=== PATIENT | female | born 1965 | race Caucasian/White ===

== ENCOUNTER 2023-10-01 04:33 | Emergency (ER) | payer BC, SELFPAY ==
--- NOTE | ~2023-10-01 | CT_ITS ---
EXAMINATION: CT ABDOMEN AND PELVIS WITHOUT CONTRAST CLINICAL INFORMATION: Flank pain. COMPARISON: None available. TECHNIQUE: Multidetector volumetric imaging was performed from the superior aspect of the liver through the pubic symphysis. Sagittal and coronal reformatted images were obtained on the technologist's workstation. This CT examination was performed using dose optimization techniques as appropriate, variously including the following: *Automated exposure control *Adjustment of mA and/or kV according to patient size (this includes techniques or standardized protocols for targeted exams where dose is matched to indication/reason for exam; i.e. extremities or head) *Use of iterative reconstruction technique DLP: 760 mGy-cm FINDINGS: LUNG BASES: The visualized lung bases are unremarkable. LIVER, GALLBLADDER, AND BILIARY TREE: The liver is normal in size, shape, and attenuation. No focal hepatic lesion or biliary ductal dilatation is present. The gallbladder is unremarkable with no evidence of radiopaque gallstones, gallbladder wall thickening, or obvious pericholecystic inflammatory changes. PANCREAS: Unremarkable. SPLEEN: Unremarkable. ADRENAL GLANDS: Unremarkable. KIDNEYS AND URETERS: The kidneys are normal in size, shape, and attenuation. There is mild to moderate right hydronephrosis and hydroureter extending into the pelvis to the level of a 3 mm calculus right ureterovesicular junction. BLADDER: Unremarkable. GASTROINTESTINAL TRACT: The small and large bowel are unremarkable. The appendix is unremarkable. ABDOMINAL WALL: No significant hernia is appreciated. LYMPH NODES: Normal. VASCULAR: Unremarkable. PELVIC VISCERA: Unremarkable. OSSEOUS STRUCTURES: Unremarkable. CT/CT abdomen pelvis wo IV con IMPRESSION: Mild to moderate right hydronephrosis and hydroureter extending into the pelvis to the level of a 3 mm calculus at the right ureterovesicular junction. Fleischner guidelines were followed.
[2023-10-01 04:48] VITALS: BP 186/88; PULSE 77; RESP 20; TEMP 36.5; O2SAT 100; BMI 37.9
--- NOTE | 2023-10-01 05:15 | ED_ITS ---
HPI - Abdominal Pain General Chief Complaint: Abdominal Pain Stated Complaint: lower right abdominal pain Time Seen by Provider: 10/01/23 05:05 Source: patient Mode of arrival: ambulatory Limitations: no limitations History of Present Illness ED Provider: samia HPI narrative: Patient woke up at midnight with pain in right lower abdomen with history of constipation pain is sharp in character comes and goes nauseated vomited once no history of similar pain in the past no history of ovarian cyst no history of kidney stone no fever no chills no urinary complaints no hematuria Related Data Previous Rx's ?Medication ?Instructions ?Recorded oxycodone 5 mg tablet 5 mg PO Q6H PRN pain #20 tabs 10/01/23 tamsulosin 0.4 mg capsule (Flomax) 0.4 mg PO BEDTIME #7 caps 10/01/23 Allergies Allergy/AdvReac Type Severity Reaction Status Date / Time No Known Allergies Allergy Verified 10/01/23 04:52 Review of Systems Review of Systems Yes all other systems are reviewed and are negative [facility] Social History Social History Smoked in Last 30 Days: No Use of substances other than those prescribed or required for medical reasons: No Advance Directives: No Advance Directives Information Provided: Yes Do you have a plan to hurt others: No Plan Physical Exam ED Vital Signs: Vital Signs - 24 hr 10/01/23 04:48 Temperature 97.7 F Pulse Rate 77 Respiratory Rate 20 Blood Pressure 186/88 H Pulse Oximetry 100 Oxygen Delivery Method Room Air BMI result Body Mass Index 37.9 Appearance: Alert. Oriented X3. Moderate distress. Eyes no pallor or icterus ENT: Pharynx normal. Oral Mucosa moist Neck: Normal inspection. Neck supple. CVS: Normal heart rate and rhythm. Pulses normal. Respiratory: No respiratory distress. Equal air entry bilateral, no wheezing/rales/rhonchi Abdomen: Soft and nontender no rebound tenderness/ guarding Bowel sounds are present, no mass palpable, mild right CVA tenderness Skin: Skin warm and dry. Normal skin color. Normal skin turgor. Extremities: No lower extremity edema. No calf tenderness Neuro: Oriented X 3. No motor deficit. Medical Decision Making Medical Decision Making [facility] Narrative: Patient with small right UV junction stone with no prior history of kidney stones felt better after pain medication and IV hydration will discharge patient home advised to follow with urologist Differential Diagnosis Differential Diagnoses: The differential diagnosis associated with the presentation includes Kidney stone/appendicitis/ovarian cyst/diverticulitis/constipation/UTI Lab Data MDM Lab Attestation statement: I reviewed the patient's lab results. 10/01/23 05:18 10/01/23 05:18 Labs: Lab Results 10/01/23 Range/Units 05:18 WBC 10.1 (4.8-10.8) X10*3/uL RBC 4.80 (4.20-5.50) X10*6/uL Hgb 15.0 (12.0-16.0) g/dl Hct 42.9 (37.0-47.0) % MCV 89.4 (80.0-98.0) fL MCH 31.3 (27.0-33.0) pg MCHC 35.0 (31.0-35.0) g/dl RDW 13.1 (11.0-16.0) % Plt Count 286 (160-400) X10*3/uL MPV 10.1 (9.4-12.3) fL Immature Gran % (Auto) 0.5 H (0.0-0.4) % Neut % (Auto) 79.7 H (45-73) % Lymph % (Auto) 14.9 L (20-40) % Bracken % (Auto) 4.4 (2-11) % Eos % (Auto) 0.3 (0-4) % Baso % (Auto) 0.2 (0-2) % Lymph # (Auto) 1.5 (1.2-4.9) X10*3/uL [place] # (Auto) 0.5 (0.1-1.2) X10*3/uL Eos # (Auto) 0.0 (0.0-0.4) X10*3/uL Baso # (Auto) 0.0 (0.0-0.2) X10*3/uL Abs Immat Gran (auto) 0.05 H (0.00-0.03) X10*3/uL Absolute Neuts (auto) 8.1 (2.0-8.3) x10*3/uL Absolute Nucleated RBC 0.000 (0.0-0.012) X10*3/uL Nucleated RBC % (auto) 0.0 (0.0-0.2) /100WBC Sodium 138 (135-145) mmol/L Potassium 4.1 (3.3-5.1) mmol/L Chloride 108 (96-108) mmol/L Carbon Dioxide 18 L (22-29) mmol/L Anion Gap 16 (12-20) BUN 24 H (9-16) mg/dL Creatinine 0.92 (0.5-1.4) mg/dL Estim Creat Clear Calc 70.2 Estimated GFR > 60 Random Glucose 162 H (60-115) mg/dL Calcium 10.1 (8.4-10.2) mg/dL Total Bilirubin 0.6 (0.0-1.0) mg/dL Direct Bilirubin 0.2 (0.0-0.5) mg/dL AST 23 (5-31) U/L ALT 22 (0-31) U/L Alkaline Phosphatase 114 (39-117) U/L Total Protein 8.0 (6.5-8.0) g/dL Albumin 4.5 (3.5-5.0) g/dL Lipase 18 (8-78) U/L Urine Color Yellow Urine Appearance Clear Urine pH 8.5 (5.0-9.0) Ur Specific [place] 1.010 (1.005-1.025) Urine Protein Trace (Neg-Trace) mg/dL Urine Glucose (UA) Negative (Negative) mg/dL Urine Ketones Trace (Negative) mg/dL Urine Blood Large (3+) H (Negative) Urine Nitrite Negative (Negative) Ur Leukocyte Esterase Negative (Negative) Urine RBC >20 H (0-2) /HPF Urine WBC 0-5 (0-5) /HPF Ur Squamous Epith Cells 0-2 (0-2) /HPF Urine Bacteria None Seen (None Seen) Hyaline Casts 0-2 (0-2) /LPF Independent Interpretation I performed an independent interpretation of an: CT Scan Radiology Impression Discussion of test interpretation with radiology: I have reviewed the radiologist's reading. Radiologist Impression: CT/CT abdomen pelvis wo IV con IMPRESSION: Mild to moderate right hydronephrosis and hydroureter extending into the pelvis to the level of a 3 mm calculus at the right ureterovesicular junction. Fleischner guidelines were followed. Medications Administered Discontinued Medications Generic Name Dose Route Start Last Admin Trade Name Freq PRN Reason Stop Dose Admin Sodium Chloride 1,000 mls @ 999 mls/hr 10/01/23 05:12 10/01/23 05:26 Ns IV 10/01/23 06:12 999 mls/hr .Q1H1M ONE Administration Ketorolac Tromethamine 30 mg 10/01/23 05:12 10/01/23 05:26 Ketorolac Tromethamine 30 Mg/Ml Vial IVPUSH 10/01/23 05:13 30 mg ONCE ONE Administration Morphine Sulfate 4 mg 10/01/23 06:27 10/01/23 06:39 Morphine Sulfate 4 Mg/Ml Cartridge IVPUSH 10/01/23 06:28 4 mg ONCE ONE Administration Protocol Ondansetron HCl 4 mg 10/01/23 05:12 10/01/23 05:25 Ondansetron Hcl 4 Mg/2 Ml Vial IVPUSH 10/01/23 05:13 4 mg ONCE ONE Administration Tamsulosin HCl 0.4 mg 10/01/23 06:27 10/01/23 06:39 Tamsulosin Hcl 0.4 Mg Capsule PO 10/01/23 06:28 0.4 mg ONCE ONE Administration Discharge Plan Discharge Clinical Impression: Calculus of kidney Patient Disposition: Home, Self-Care Instructions: Kidney Stones (ED) Additional Instructions: Drink plenty of fluids Pain medication as prescribed Take Flomax daily till you pass the stone Follow with urologist Prescriptions: New oxycodone 5 mg tablet 5 mg PO Q6H PRN (Reason: pain) Qty: 20 0RF Rx Instructions: Partial Fill upon patient request. tamsulosin [Flomax] 0.4 mg capsule 0.4 mg PO BEDTIME Qty: 7 0RF Print Language: Tamazight
[2023-10-01] MEDS: ondansetron HCL 4 MG/2 ML VIAL IVPUSH (05:25)
[2023-10-01 05:26] LABS: Basophils Percent Auto 0.2 % (0-2); Eosinophils Percent Auto 0.3 % (0-4); Hematocrit 42.9 % (37.0-47.0); Imm Gran Abs Auto 0.05 X10*3/uL (0.00-0.03); Imm Gran Pct Auto 0.5 % (0.0-0.4); Lymphocytes Absolute Auto 1.5 X10*3/uL (1.2-4.9); Lymphocytes Percent Auto 14.9 % (20-40); MANUAL DIFF FLAG NO; Mean Corpuscular Hemoglobin 31.3 pg (27.0-33.0); Mean Corpuscular Volume 89.4 fL (80.0-98.0); Mean Platelet Volume 10.1 fL (9.4-12.3); Monocytes Absolute Auto 0.5 X10*3/uL (0.1-1.2); Monocytes Percent Auto 4.4 % (2-11); Neutrophils Absolute Auto 8.1 x10*3/uL (2.0-8.3); Neutrophils Percent Auto 79.7 % (45-73); Platelet Count 286 X10*3/uL (160-400); Red Cell Distribution Width 13.1 % (11.0-16.0); White Blood Count 10.1 X10*3/uL (4.8-10.8)
[2023-10-01] MEDS: 0.9 % Sodium Chloride 1,000 ML 999 ML IV (05:26)
[2023-10-01] MEDS: Ketorolac Tromethamine 30 MG/ML VIAL IVPUSH (05:26)
[2023-10-01 05:27] LABS: Appearance Urine Clear; Color Urine Yellow; Glucose Urine UA Negative (Negative); Leukocyte Esterase Urine Negative (Negative); Nitrite Urine Negative (Negative); PH 8.5 (5.0-9.0); UMIC TRIGGER UACC YES; Urine Blood Large (3+) (Negative); Urine Ketones Trace mg/dL (Negative); Urine Protein Trace mg/dL (Neg-Trace)
[2023-10-01 05:35] LABS: Bacteria Urine None Seen (None Seen); Hyaline Casts Urine 0-2 /LPF (0-2); RBC Urine >20 /HPF (0-2); Squamous Epithelial Cell Urine 0-2 /HPF (0-2); WBC Urine 0-5 /HPF (0-5)
[2023-10-01 05:44] LABS: Alanine Aminotransferase 22 U/L (0-31); Albumin Level 4.5 g/dL (3.5-5.0); Alkaline Phosphatase 114 U/L (39-117); Anion Gap 16 (12-20); Aspartate Amino Transferase 23 U/L (5-31); Bilirubin Direct 0.2 mg/dL (0.0-0.5); Bilirubin Total 0.6 mg/dL (0.0-1.0); Blood Urea Nitrogen 24 mg/dL (9-16); Calcium 10.1 mg/dL (8.4-10.2); Carbon Dioxide 18 mmol/L (22-29); Chloride 108 mmol/L (96-108); Creatinine Clr Calc Pharmacy 70.2; Estimated Glomerular Filt Rate > 60; Glucose Random 162 mg/dL (60-115); Lipase 18 U/L (8-78); Potassium 4.1 mmol/L (3.3-5.1); Sodium 138 mmol/L (135-145)
[2023-10-01] MEDS: Tamsulosin HCL 0.4 MG CAPSULE PO (06:39)
[2023-10-01] MEDS: Morphine Sulfate 4 MG/ML CARTRIDGE IVPUSH (06:39)
[2023-10-01] MEDS: oxyCODONE HCl Immed Release 5 MG TABLET 10 MG PO (07:41)
--- NOTE | 2023-10-01 07:55 | PC.NURSE ---
this RN resumed care of pt at 0645. a&ox4. vss and up to date. nsr on the athletic monitor. IVF infused at this time. rating pain a 5/10. medication administered per provider order. effectiveness pending. no sob/wob noted. respirations even/unlabored. plan of care ongoing. call maria placed within reach.
[2023-10-01 08:10] VITALS: BP 186/88; PULSE 77; RESP 20; TEMP 36.5; O2SAT 100
--- NOTE | 2023-10-01 08:17 | PC.NURSE ---
pt verbalizing pain completely subsided s/p medication administration. pt requesting to leave.
== END 2023-10-01 08:18 | disposition home or self-care (01) ==
PROVIDERS: Emergency Provider Internal Medicine; PCP Nurse Practitioner Family
DX: N13.2 Hydronephrosis with renal and ureteral calculous obstruction (principal); R10.31 Right lower quadrant pain
CPT/HCPCS: 36415; 74176; 80048; 80076; 81001; 83690; 85025; 96361; 96374; 96375; 99284; 99285; J1885; J2270; J2405

== ENCOUNTER 2023-11-17 14:36 | Outpatient (AMB) | payer BC, SELFPAY ==
--- NOTE | 2023-11-17 14:37 | MHC.OFFVIS ---
Intake Visit Reasons: kidney stone Intake Note: Patient is present for KIDNEY STONES Urology Medication:TAMSULOSIN Antibiotic Allergy:NONE Blood Thinner:NONE Senior Manufacturing Engineer Required: No Allergies No Known Allergies Allergy (Verified 11/17/23 14:38) HPI Comments Details: Laila is here for evaluation for kidney stones. She was seen in ED on 10/01/23 for right abd pain. CTAP-- right hydro, 3 mm ureteral stone. The patient passed the stone and brought it in. She states this is her lst stone, she states her brother has had kidney stones. I have discussed diet modification to decrease risk of forming more kidney stones. I have discussed low oxalate diet and specific foods to avoid including certain green leafy vegetables, chocalate, nuts, tea, beets, rubarb; low sodium, decreased use of animal protein and the importance of increasing fluids. She brought in stone, will send for analysis further eval with 24 hr urine Review of Systems Const All systems reviewed & are unremarkable except as noted in HPI and below Reports no additional complaints Eyes Reports no additional complaints ENT Reports no additional complaints Card Reports no additional complaints Resp Reports no additional complaints GI Reports no additional complaints Reports as per HPI Musc Reports no additional complaints Skin/Breast Reports system reviewed and no additional complaints, except as documented Neuro Reports no additional complaints Psych Reports no additional complaints Endo Reports no additional complaints Juan/Lymph Reports no additional complaints Aller/Immun Reports no additional complaints Physical Exam Const General: cooperative, healthy appearing and no acute distress Orientation/consciousness: patient oriented x3 HEENT Head: Yes normal to inspection, Yes normocephalic and Yes atraumatic Eyes Conjunctivae: conjunctivae normal Neck Neck: Yes normal visual inspection and Yes trachea midline Chest Chest palpation & inspection: normal inspection of the chest Resp Effort & Inspection: normal respiratory effort Cardio Jugular venous distension: no JVD GI Inspection: Yes normal to inspection Palpation (GI): Soft to palpation Skin General skin exam: no rashes or lesions noted Neuro General: patient oriented x3 Psych Appearance: grossly normal Results AMB Urinalysis, Automated UA Leukoctes 0 Daja/uL Last Edit by JYOTI Oneal on 11/17/23 14:50 UA Nitrite Negative Last Edit by JYOTI Oneal on 11/17/23 14:50 UA Urobilinogen 0.2 mg/dL Last Edit by JYOTI Oneal on 11/17/23 14:50 UA Protein 0 mg/dL Last Edit by Nelson Eisenberg [facility] on 11/17/23 14:50 UA pH 6.0 Last Edit by Nelson Eisenberg [facility] on 11/17/23 14:50 UA Blood 0 Yaron/uL Last Edit by Nelson Eisenberg [facility] on 11/17/23 14:50 UA Specific [place] 1.020 Last Edit by Nelson Eisenberg [facility] on 11/17/23 14:50 UA Ketone Negative Last Edit by Nelson Eisenberg [facility] on 11/17/23 14:50 UA Bilirubin 0 mg/dL Last Edit by Nelson Eisenberg [facility] on 11/17/23 14:50 UA Glucose 0 mg/dL Last Edit by Nelson Eisenberg [facility] on 11/17/23 14:50 Results Reviewed Results Reviewed: Laboratory Last Values Urine pH (Auto) 6.0 11/17/23 14:49 Specific [place] (Auto) 1.020 11/17/23 14:49 Urine Protein (Auto) 0 mg/dL 11/17/23 14:49 Glucose (UA)(Auto) 0 mg/dL 11/17/23 14:49 Urine Ketones (Auto) Negative 11/17/23 14:49 Urine Blood (Auto) 0 Yaron/uL 11/17/23 14:49 Urine Nitrite (Auto) Negative 11/17/23 14:49 Urine Bilirubin (Auto) 0 mg/dL 11/17/23 14:49 Urine Urobilinogen (Auto) 0.2 mg/dL 11/17/23 14:49 Leukocyte Esterase (Auto) 0 Daja/uL 11/17/23 14:49 Date of Service: 10/01/23 CT ABDOMEN AND PELVIS WITHOUT CONTRAST CLINICAL INFORMATION: Flank pain. COMPARISON: None available. TECHNIQUE: Multidetector volumetric imaging was performed from the superior aspect of the liver through the pubic symphysis. Sagittal and coronal reformatted images were obtained on the technologist's workstation. This CT examination was performed using dose optimization techniques as appropriate, variously including the following: *Automated exposure control *Adjustment of mA and/or kV according to patient size (this includes techniques or standardized protocols for targeted exams where dose is matched to indication/reason for exam; i.e. extremities or head) *Use of iterative reconstruction technique DLP: 760 mGy-cm FINDINGS: LUNG BASES: The visualized lung bases are unremarkable. LIVER, GALLBLADDER, AND BILIARY TREE: The liver is normal in size, shape, and attenuation. No focal hepatic lesion or biliary ductal dilatation is present. The gallbladder is unremarkable with no evidence of radiopaque gallstones, gallbladder wall thickening, or obvious pericholecystic inflammatory changes. PANCREAS: Unremarkable. SPLEEN: Unremarkable. ADRENAL GLANDS: Unremarkable. KIDNEYS AND URETERS: The kidneys are normal in size, shape, and attenuation. There is mild to moderate right hydronephrosis and hydroureter extending into the pelvis to the level of a 3 mm calculus right ureterovesicular junction. BLADDER: Unremarkable. GASTROINTESTINAL TRACT: The small and large bowel are unremarkable. The appendix is unremarkable. ABDOMINAL WALL: No significant hernia is appreciated. LYMPH NODES: Normal. VASCULAR: Unremarkable. PELVIC VISCERA: Unremarkable. OSSEOUS STRUCTURES: Unremarkable. IMPRESSION: Mild to moderate right hydronephrosis and hydroureter extending into the pelvis to the level of a 3 mm calculus at the right ureterovesicular junction. Assessment & Plan Assessment & Plan (1) Hydronephrosis, right: Code(s): N13.30 - Unspecified hydronephrosis Category: Medical (2) Ureteral stone: Code(s): N20.1 - Calculus of ureter Category: Medical Plan brought in stone, will send for analysis further eval with 24 hr urine Orders: Orders AMB Urinalysis Automated Today Z13.9 - Encounter for screening, unspecified Patient Instructions: The patient had an opportunity to ask questions regarding treatment plan. The patient expressed understanding and agreement with the above treatment plan. The patient is aware they should contact our office by phone for worsening of their current condition or the appearance of new symptoms. Compliance is encouraged with any medications and followup testing that is ordered. It is a privilege to be allowed the opportunity to participate in the urologic care of your patient. If you have any questions or concerns regarding treatment for the above conditions please do not hesitate to contact me. The office telephone contact is [phone]. This note is constructed in part using voice recognition software. While every effort has been made to ensure accuracy front office clerk errors may have been included. Yours sincerely, Tima Appiah MD Coding Level of Care Code New Pt Level 3 (84334) Diagnoses Hydronephrosis, right N13.30 Ureteral stone N20.1
== END 2023-11-17 15:34 | disposition home or self-care (01) ==
PROVIDERS: PCP Nurse Practitioner Family; Visit Provider Urology
DX: N13.30 Unspecified hydronephrosis (principal); N20.1 Calculus of ureter; Z13.9 Encounter for screening, unspecified
CPT/HCPCS: 99203

== ENCOUNTER 2023-11-17 14:36 | Outpatient (REF) | payer BC, SELFPAY ==
[2023-11-25 18:43] LABS: Stone Source STONE
== END 2023-11-17 14:37 | disposition home or self-care (01) ==
LOC: HO.LNP 14:36
PROVIDERS: PCP Nurse Practitioner Family; Visit Provider Urology
DX: N20.1 Calculus of ureter (principal)
CPT/HCPCS: 81003; 82365; 88300

== ENCOUNTER 2024-02-17 13:20 | Outpatient (AMB) | payer BC, SELFPAY ==
--- NOTE | 2024-02-17 13:07 | MHC.OFFVIS ---
Intake Visit Reasons: [facility] f/u- r/s Intake Note: Patient is Present for Follow Up [facility] Results Urology Medication: Tamsulosin ( No longer taking tamsulosin, does not feel like she needs any refill) Antibiotic Allergies: None Blood Thinners: None [facility] Report: 02/05/2024 Steel Pourer Required: No Accompanied by: Self / Same As Patient Allergies No Known Allergies Allergy (Verified 02/17/24 13:36) HPI Comments Details: 02/17/24--FU litholink-24 hr urine. Discussed 24 hour urine results: Collected 02/05/24--Total volume 1.2 L, Calcium 162 mg; Oxalate 41 mg, Sodium 207, Citrate 707 mg. Instructed on importance of fluid intake, Low oxalate diet, low sodium diet. This is her first stone and will FU prn. 30 minutes spent in review of records pertaining to this visit and including [id number] discussion with the patient and documentation of this visit. Stone analysis-11/17/13--Calcium Oxalate Dihydrate (Weddellite) 20%, Calcium Oxalate Monohydrate (Whewellite) 80% Review of chart: 11/17/23--Laila is here for evaluation for kidney stones. She was seen in ED on 10/01/23 for right abd pain. CTAP-- right hydro, 3 mm ureteral stone. The patient passed the stone and brought it in. She states this is her lst stone, she states her brother has had kidney stones. I have discussed diet modification to decrease risk of forming more kidney stones. I have discussed low oxalate diet and specific foods to avoid including certain green leafy vegetables, chocalate, nuts, tea, beets, rubarb; low sodium, decreased use of animal protein and the importance of increasing fluids. She brought in stone, will send for analysis further eval with 24 hr urine Review of Systems Const All systems reviewed & are unremarkable except as noted in HPI and below Reports no additional complaints Eyes Reports no additional complaints ENT Reports no additional complaints Card Reports no additional complaints Resp Reports no additional complaints GI Reports no additional complaints Reports as per HPI Musc Reports no additional complaints Skin/Breast Reports system reviewed and no additional complaints, except as documented Neuro Reports no additional complaints Psych Reports no additional complaints Endo Reports no additional complaints Juan/Lymph Reports no additional complaints Aller/Immun Reports no additional complaints Results AMB Urinalysis, Automated UA Leukoctes 15 Daja/uL Last Edit by Deborahsheryl Valle, A on 02/17/24 13:42 UA Nitrite Negative Last Edit by Deborahsheryl Amosro, A on 02/17/24 13:42 UA Urobilinogen 0.2 mg/dL Last Edit by Deborahsheryl Amosro, A on 02/17/24 13:42 UA Protein 15 mg/dL Last Edit by Deborah Amosro, A on 02/17/24 13:42 UA pH 6.0 Last Edit by Deborah Amosro, RMA on 02/17/24 13:42 UA Blood 0 Yaron/uL Last Edit by Deborahsheryl Valle, A on 02/17/24 13:42 UA Specific [place] 1.030 Last Edit by Deborahsheryl Amosro, A on 02/17/24 13:42 UA Ketone Negative Last Edit by Deborah Valle, A on 02/17/24 13:42 UA Bilirubin 0 mg/dL Last Edit by Deborah Valle, A on 02/17/24 13:42 UA Glucose 0 mg/dL Last Edit by Deborah Valle, A on 02/17/24 13:42 Results Reviewed Results Reviewed: Laboratory Last Values Urine pH (Auto) 6.0 02/17/24 13:36 Specific [place] (Auto) 1.030 02/17/24 13:36 Urine Protein (Auto) 15 mg/dL 02/17/24 13:36 Glucose (UA)(Auto) 0 mg/dL 02/17/24 13:36 Urine Ketones (Auto) Negative 02/17/24 13:36 Urine Blood (Auto) 0 Yaron/uL 02/17/24 13:36 Urine Nitrite (Auto) Negative 02/17/24 13:36 Urine Bilirubin (Auto) 0 mg/dL 02/17/24 13:36 Urine Urobilinogen (Auto) 0.2 mg/dL 02/17/24 13:36 Leukocyte Esterase (Auto) 15 Daja/uL 02/17/24 13:36 GAGE: 11/17/23-1612 STATUS: COMP REQ : [id number] RECD: 11/18/23-[address]: Tima Appiah MD COMP: 11/25/23-1843 ENTERED: 11/18/23-1049 [facility] DR: Tori Heath IMPREGNATOR [employer] ORDERED: Kidney Stone QUERIES: Kidney Stone Source: [id number] Test Result Flag Reference Component 1 SEE NOTE Calcium Oxalate Dihydrate (Weddellite) 20% Calcium Oxalate Monohydrate (Whewellite) 80% Stone Weight 0.020 g This test was developed and its analytical performance characteristics have been determined by [employer]. It has not been cleared or approved by FDA. This assay has been validated pursuant to the CLIA regulations and is used for clinical purposes. THIS TEST WAS PERFORMED AT: [id number]/[facility] [id number] [place] [address] MINERVA COOL MD,PHD,RHIANNA Stone Source STONE Date of Service: 10/01/23 CT ABDOMEN AND PELVIS WITHOUT CONTRAST CLINICAL INFORMATION: Flank pain. COMPARISON: None available. TECHNIQUE: Multidetector volumetric imaging was performed from the superior aspect of the liver through the pubic symphysis. Sagittal and coronal reformatted images were obtained on the technologist's workstation. This CT examination was performed using dose optimization techniques as appropriate, variously including the following: *Automated exposure control *Adjustment of mA and/or kV according to patient size (this includes techniques or standardized protocols for targeted exams where dose is matched to indication/reason for exam; i.e. extremities or head) *Use of iterative reconstruction technique DLP: 760 mGy-cm FINDINGS: LUNG BASES: The visualized lung bases are unremarkable. LIVER, GALLBLADDER, AND BILIARY TREE: The liver is normal in size, shape, and attenuation. No focal hepatic lesion or biliary ductal dilatation is present. The gallbladder is unremarkable with no evidence of radiopaque gallstones, gallbladder wall thickening, or obvious pericholecystic inflammatory changes. PANCREAS: Unremarkable. SPLEEN: Unremarkable. ADRENAL GLANDS: Unremarkable. KIDNEYS AND URETERS: The kidneys are normal in size, shape, and attenuation. There is mild to moderate right hydronephrosis and hydroureter extending into the pelvis to the level of a 3 mm calculus right ureterovesicular junction. BLADDER: Unremarkable. GASTROINTESTINAL TRACT: The small and large bowel are unremarkable. The appendix is unremarkable. ABDOMINAL WALL: No significant hernia is appreciated. LYMPH NODES: Normal. VASCULAR: Unremarkable. PELVIC VISCERA: Unremarkable. OSSEOUS STRUCTURES: Unremarkable. IMPRESSION: Mild to moderate right hydronephrosis and hydroureter extending into the pelvis to the level of a 3 mm calculus at the right ureterovesicular junction. Assessment & Plan Assessment & Plan (1) Hydronephrosis, right: Code(s): N13.30 - Unspecified hydronephrosis Category: Medical (2) Ureteral stone: Code(s): N20.1 - Calculus of ureter Category: Medical Plan FU prn Orders: Orders AMB Urinalysis Automated 02/17/24 Z13.9 - Encounter for screening, unspecified Patient Instructions: The patient had an opportunity to ask questions regarding treatment plan. The patient expressed understanding and agreement with the above treatment plan. The patient is aware they should contact our office by phone for worsening of their current condition or the appearance of new symptoms. Compliance is encouraged with any medications and followup testing that is ordered. It is a privilege to be allowed the opportunity to participate in the urologic care of your patient. If you have any questions or concerns regarding treatment for the above conditions please do not hesitate to contact me. The office telephone contact is [phone]. This note is constructed in part using voice recognition software. While every effort has been made to ensure accuracy market research lead errors may have been included. Yours sincerely, Tima Appiah MD Coding Level of Care Code Est Pt Level 4 (57320) Diagnoses Hydronephrosis, right N13.30 Ureteral stone N20.1
--- OUTSIDE RECORDS SUMMARY | 2024-02-22 09:37 | XMS_ITS | Patient Health Record ---
Author Organization [facility] Address [address] [place] [address] Care Team Providers Care Salesperson [employer] Name Role Phone ANGELINA BETANCUR Primary Care Provider [phone] ANGELINA BETANCUR Unavailable [phone] Allergies Allergen (clinical drug ingredient) Drug/Non Drug Allergy documented on EMR Reaction Allergy Type Onset Date Status codeine Codeine Derivatives (uncoded) Unknown Allergy Active Reason For Referral No Information Medications Medication SIG (Take, Route, Frequency, Duration) Notes Start Date End Date Status Vitamin D3 25 MCG (1000 UT) 1 capsule Orally Once a day for 30 day(s) 3 PO QD Not-Taking Airborne - as directed Orally Not-Taking Emergen-C Immune - as directed Orally Active Immunizations Vaccine Route Administration Date Status Comme nts Td (adult) preservative free Unknown 02/28/2014 Pending Tdap Unknown 02/28/2014 Pending MIG_SID-Immuni zation Date :28Feb2014 11:06AM Social History Tobacco Use: Social History Observation Description Date Details (start date - stop date) Never Smoker NA - NA Tobacco Use/Smoking Question Answer Notes Are you a nonsmoker Additional Findings: Tobacco Non-User Aggressive non-smoker Alcohol Screen (Audit-C) Question Answer Notes Did you have a drink contain ing alcohol in the past year? Yes How often did you have a dri nk containing alcohol in the past year? Monthly or less (1 point) How many drinks did you have on a typical day when you were drinking in the past year? 1 or 2 drinks (0 point) How often did you have 6 or more drinks on one occasion in the past year? Never (0 point) Points 1 Interpretation Negative Section Notes: no tobacco use etoh: twice a month. limits to one drink. no tobacco use etoh: twice a month. limits to one drink. no tobacco use etoh: twice a month. limits to one drink. using seatbelt sunscreen spf 50 usually. no tobacco use etoh: twice a month. limits to one drink. using seatbelt sunscreen yes Uses 50 when out for day, never less than 30. sunscreen spf 50 usually. no tobacco use etoh: one drink a month. limits to one drink. using seatbelt Sunscreen in summer: spf 30-50. Daughter in second year at [employer] in 2010 from high school Son went to college for a year, came home. doesn't know what he wants to do IF he grows up. Mike has ADD but won't seek care. sunscreen yes Uses 50 when out for day, never less than 30. sunscreen spf 50 usually. no tobacco use etoh: one drink a month. limits to one drink. using seatbelt Sunscreen in summer: spf 30-50. Daughter in second year at [employer] in 2010 from high school Son went to college for a year, came home. doesn't know what he wants to do IF he grows up. Mike has ADD but won't seek care. 2021 just got a job and hopefully will be helpful. sunscreen yes Uses 50 when out for day, never less than 30. sunscreen spf 50 usually. Diet Does not levine, eats well during day but then snacks with comfort foods in evening-lots of carbs. Does hae about 2 cups fruits and veggies. Problems Problem Type SNOMED Code ICD Code Onset Dates Problem Status W/U Status Risk Notes Problem 456132355 Morbid (severe) obesity due to excess calories (E66.01) Active confirmed Problem Glossitis (73633858) Glossitis (K14.0) Active confirmed Problem Adult health examination (971340305) Encounter for general adult medical examination without abnormal findings (Z00.00) Active confirmed Problem 67873021 Stress (F43.9) Active confirmed interfers with sleep, feels like she is always going 100 mph. discussed SSRI> does not want to use at this time. will cont guided meditation. Problem 690413459 Body mass index [BMI] 37.0-37.9, adult (Z68.37) Active confirmed Problem 85939627 Obstructive sleep apnea hypopnea, mild (G47.33) Active confirmed mild to moderate on sleep study 09/02. 16 episodes per hour Autocpap 6-16cm H2o Plan Of Treatment Pending Test Test Name Order Date Comp. Metabolic Panel (14) 01/25/2017 Lipid Profile 01/25/2017 MAMMOGRAM, SCREENING 01/26/2016 MAMMOGRAM, SCREENING 02/15/2017 MAMMOGRAM, SCREENING 02/28/2018 MAMMOGRAM, SCREENING 03/02/2019 sleep study 05/25/2021 COMPREHENSIVE METABOLIC PANEL 01/26/2016 COMPREHENSIVE METABOLIC PANEL 07/06/2016 HEPATITIS C VIRUS SCREEN 01/26/2016 LIPID PROFILE 01/26/2016 LIPID PROFILE 07/06/2016 Future Test Test Name Order Date COMPREHENSIVE METABOLIC PANEL 06/05/2020 LIPID PROFILE 06/05/2020 Insurance Providers Payer Name Payer Address Payer Phone Subscriber Number Group Number Insured Name Patient Relationship to Insured Coverage Start Date Coverage End Date [employer] [place] [employer] [facility] [address] [place] [address] [id number] Julia Laila Self - patient is the insured Medical (General) History Medical History History ICD Code , Bitten By A Spider , Cellu litis , Diffuse Nontoxic Goiter , History of headache , History of urinary frequency , Skin: A Rash
== END 2024-02-17 14:00 | disposition home or self-care (01) ==
PROVIDERS: PCP Nurse Practitioner Family; Visit Provider Urology
DX: N13.30 Unspecified hydronephrosis (principal); N20.1 Calculus of ureter
CPT/HCPCS: 99214

== ENCOUNTER → 2024-02-17 13:20 | Outpatient (BNVA) | payer BC, SELFPAY | PROVIDERS: PCP Nurse Practitioner Family; Visit Provider Urology | DX: N13.0 Hydronephrosis with ureteropelvic junction obstruction (principal); N20.1 Calculus of ureter | CPT/HCPCS: 81003 ==